=== PATIENT | female | born 1980 | race African-American/Black ===

== ENCOUNTER 2018-11-23 02:01 | Emergency (ER) | payer MEDICAID ==
[~2018-11-23] VITALS: Ht 162.6 cm; Wt 68.0 kg
[2018-11-23] MEDS ORDERED: DIPHENHYDRAMINE 50MG/ML VIAL IV ONE (06:45)
[2018-11-23] MEDS ORDERED: METOCLOPRAMIDE HCL 10MG/2ML VIAL IV ONE (06:45)
[2018-11-23] MEDS ORDERED: KETOROLAC 30MG/ML VIAL IV ONE (06:45)
[2018-11-23] MEDS ORDERED: SODIUM CHLORIDE 0.9% 1,000 ML IV ONE (06:45)
[2018-11-23 09:09] VITALS: BP 125/61
== END 2018-11-23 09:14 | disposition home or self-care (01) ==
LOC: ER 02:01
DX: R51 Headache (principal); F17.210 Nicotine dependence, cigarettes, uncomplicated; Z88.2 Allergy status to sulfonamides; Z98.84 Bariatric surgery status
CPT/HCPCS: 81025; 96374; 96375; 99283; J1200; J1885; J2765; J7030; Z7610